=== PATIENT | female | born 2000 | race Caucasian/White ===

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

== ENCOUNTER → 2020-10-19 15:11 | Outpatient (CLI) | payer OTHER, SELFPAY ==
[2020-10-19 13:14] VITALS: BMI 24.6
== END ==
PROVIDERS: PCP Pediatrics; Referring Provider Internal Medicine Infectious Disease; Visit Provider Internal Medicine Infectious Disease
DX: Z01.84 Encounter for antibody response examination (principal)
CPT/HCPCS: 87635; U0002

== ENCOUNTER 2020-12-17 22:33 | Emergency (ER) | payer OTHER, SELFPAY ==
[2020-10-19 13:14] VITALS: BMI 24.6
[2020-12-17 22:33] VITALS: BP 134/76; PULSE 82; RESP 18; TEMP 36.3; O2SAT 99; BMI 24.3
--- NOTE | 2020-12-17 22:36 | EKG12_ITS ---
Test Reason : CP Blood Pressure : / mmHG Vent. Rate : 079 BPM Atrial Rate : 079 BPM P-R Int : 160 ms QRS Dur : 088 ms QT Int : 388 ms P-R-T Axes : 026 036 020 degrees QTc Int : 444 ms Normal sinus rhythm Normal ECG Confirmed by DIDIER CHEN, KWESI ([id number]), photo editor KORI FRANCIS ([id number]) on 12/18/2020 10:45:13 AM Referred By: WAYNE Confirmed By:KWESI VELÁSQUEZ MD
--- NOTE | 2020-12-17 22:55 | RAD_ITS ---
STUDY: X-RAY CHEST REASON FOR EXAM: Female, 20 years old. Chest pain. TECHNIQUE: AP portable chest. COMPARISON: None. FINDINGS: The lungs are clear and expanded. There is no demonstrated pleural abnormality. Normal size heart. Normal mediastinum and brayan. Normal visualized pulmonary arteries. Normal visualized aortic arch and descending thoracic aorta. Normal visualized thoracic spine. Normal visualized ribs, clavicles, and shoulders. There is no demonstrated abnormality of the visualized soft tissue structures of the upper abdomen. RAD/Chest 1 View (Portable) IMPRESSION: Normal x-ray examination of the chest. Electronically Signed: Jose Burrows MD at 23:13 EST , Service support ,
[2020-12-17 22:57] LABS: Absolute Lymphocyte Count 2.54 X10^3/uL (0.83-4.51); Basophil# 0.03 X10^3/uL; Basophil% 0.4 % (0-1); Eosinophil# 0.11 X10^3/uL; Eosinophils% 1.5 % (0-5); Hematocrit 36.3 % (37-47); Hemoglobin 12.4 g/dL (12.0-15.0); Lymphocyte # 2.54 X10^3/ul (4.0); Lymphocyte % 35.2 % (19-41); Mean Corp Hgb Conc 34.2 g/dL (32-36); Mean Corpuscular Hgb 30.5 pg (27.0-32.0); Mean Corpuscular Volume 89.4 fL (81-99); Mean Platelet Vol. 10.7 fl (6.2-12.0); Monocyte# 0.56 X10^3/uL; Monocyte% 7.8 % (0-10); NRBC Flagged by Analyzer 0 % (0-5); Neutrophil # 3.97 X10^3/uL (2.7-7.7); Platelet Count 245 K/mm3 (150-450); RBC Distribution Width CV 11.4 % (11.6-14.6); RBC Distribution Width SD 36.9 fl (35.1-43.9); Red Blood Count 4.06 M/mm3 (4.2-5.4); White Blood Count 7.2 K/mm3 (4.4-11.0)
--- NOTE | 2020-12-17 23:07 | ED.DCSUM_ITS ---
- ER Visit Summary Date of Service: 12/17/20 Chief Complaint: Chest pain History of Present Illness: The patient is a 20 F with no primary care physician. 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 She reports that she has had intermittent upper left chest pain for months. States that it comes on lasts hours at a time. The current episode began 1 hour ago while she was undergoing light activity. States pain is 10 on 10 at worst and 6 out of 10 currently. Is worsened by breathing. There is no change with exertion or movement of her arm or torso. Is relieved by nothing. Patient reports that during these episodes she feels as though her heart is racing. She is diaphoretic and short of breath as well. Patient reports that she had Covid at the end of October. However, these episodes of chest pain preceded that. She is not a smoker. She has no family or personal history of DVT. No recent travel. No ankle swelling or calf pain. Physical Examination: Vitals: Stable. Afebrile. General: Well-nourished and well-developed. Head: Normocephalic atraumatic. Neck: Supple, no lymphadenopathy. No JVD. Nontender. Cardiovascular: Regular rate and rhythm. No murmurs. Respiratory: No respiratory distress. Clear to auscultation bilaterally. Abdominal: Soft, nontender, nondistended, normal bowel sounds. No guarding, rebound, or peritoneal signs. Back: Nontender. Extremities: Nontender, no edema. Skin: Normal color, no rash. Neurologic: Alert and oriented ?3. Cranial nerves II through XII are intact. Normal strength and sensation. Psych: Normal affect. Test Results: EKG is sinus at [address] changes. CBC is marked for hematocrit 36.3. Chem-7 is normal. Troponin is negative. D-dimer is negative. test negative. Chest x-ray shows no acute disease. Emergency Department Course and Treatment: Patient had an IV placed. She is resting comfortably and refused pain medications. Treatment Plan: At this time I do not have an explanation for the patient's chest pain. At that she is suitable candidate for further outpatient evaluation. She will be discharged with instructions to follow-up with Dr. Jack in 3 to 5 days for another exam. Return to the emergency department for any worsening symptoms. Disposition: To home in improved and stable condition. Impression: 1. Atypical chest pain. This note was generated with [employer] dictation software. It may contain incorrect words, spelling, and punctuation that were not noted in review of the chart prior to signing ED Disposition - Plan for ED Patient: Instructions: ED Chest Pain, Uncertain Cause Referrals: Idania Jack MD [STAFF PHYSICIAN] - 3-5 Days
[2020-12-17 23:08] LABS: D-Dimer Quantitative (DVT/PE) 0.32 FEU/ug/m (0.27-0.49); Internal QC Validated? YES +Cl - CLEAR BKGD; Pregnancy, Serum, hCG Quali. NEGATIVE Negative
[2020-12-17 23:13] LABS: Anion Gap 6 (5-15); BUN 14 mg/dL (7-18); BUN/Creat Ratio 16.7 RATIO (10-20); Chloride 105 mmol/L (98-107); Creatinine, Serum 0.84 mg/dL (0.55-1.02); EST Glomerular Filtration Rate 91 mL/min (>60); Est Glom Filt Rate - Afr Amer 110 mL/min (>60); Estimated Creatinine Clearance 110.72 ml/min; Glucose 91 mg/dL (74-106); Potassium 3.6 mmol/L (3.5-5.1); Sodium Level 137 mmol/L (136-145)
[2020-12-17 23:30] VITALS: PULSE 74; RESP 16; O2SAT 99
== END 2020-12-17 23:31 | disposition home or self-care (01) ==
LOC: ED 22:48
PROVIDERS: Emergency Provider Emergency Medicine
DX: R07.89 Other chest pain (principal); Z86.19 Personal history of other infectious and parasitic diseases; R06.02 Shortness of breath
CPT/HCPCS: 71045; 80048; 84484; 84703; 85025; 85379; 93005; 99284

== ENCOUNTER 2021-01-04 20:00 | Outpatient (RCR) | payer OTHER, SELFPAY | END 2021-01-19 23:59 | LOC: EMPH 20:00 | PROVIDERS: Referring Provider Family Medicine Geriatric Medicine; Visit Provider Family Medicine Geriatric Medicine | DX: Z03.818 Encounter for observation for suspected exposure to other biological agents ruled out (principal) ==

== ENCOUNTER → 2021-07-31 10:26 | Outpatient (CLI) | payer OTHER, SELFPAY | PROVIDERS: Referring Provider Physician Assistant; Visit Provider Physician Assistant | DX: J02.9 Acute pharyngitis, unspecified (principal) | CPT/HCPCS: 87081 ==

== ENCOUNTER → 2023-04-13 | Outpatient (CLI) | payer BC, SELFPAY ==
--- NOTE | 2023-04-13 12:57 | CT_ITS ---
STUDY: CT ABDOMEN WITH AND WITHOUT CONTRAST REASON FOR EXAM: Female, 22 years old. Hepatic lesion noted on previous CT RADIATION DOSAGE (If Supplied By Facility): CTDIvol = ( 7.58 ) mGy, DLP = ( 887.90 ) mGycm TECHNIQUE: Transaxial images were obtained pre and post I.V. administration of IV 100mL [id number], and without oral contrast. Sagittal and coronal images were reconstructed. Noncontrasted study, postcontrast, venous phase and delayed images also performed Individualized dose optimization techniques were used for this CT. COMPARISON: CT chest from 04/03/2023 FINDINGS: The visualized lung bases are unremarkable. The visualized portions of the heart are within normal limits. Liver is unremarkable aside from a 1.02 cm hemangioma in the right lobe of the liver. Initial noncontrasted study shows it to be present on axial image 19, it then shows a flash of contrast on the initial postcontrast images, then becomes faint and difficult to see on the delayed images. These findings are consistent with hemangioma. There is no suspicious lesion within the liver. No specific follow-up is needed. Normal gallbladder and extrahepatic biliary system. Normal spleen. Normal pancreas. Normal bilateral adrenal glands. Normal right kidney. Normal left kidney. Normal visualized stomach. Normal small intestine. Retained stool noted in the colon. There is non-visualization of the appendix. Normal abdominal aorta. Normal inferior vena cava. Normal retroperitoneum. Normal abdominal wall. Normal osseous structures. CT/Abdomen W/WO IV Contrast IMPRESSION: 1.02 cm hemangioma noted in the right lobe of the liver. No specific follow-up needed. Other solid organs are unremarkable No free intraperitoneal fluid, air, or suspicious adenopathy, appendix not seen due to it being outside the study Electronically Signed: Alcides Farooq MD at 15:18 EDT ,
== END | disposition home or self-care (01) ==
LOC: CT 12:53
PROVIDERS: PCP Physician Assistant; Referring Provider Physician Assistant; Visit Provider Physician Assistant
DX: K76.9 Liver disease, unspecified (principal)
CPT/HCPCS: 74170; Q9967; A4216